=== PATIENT | female | born 1975 | race Two or more races ===

== ENCOUNTER 2020-04-08 05:15 | Day surgery (SDC) | payer OTHER ==
[~2020-04-08 05:15] MED LIST: ATACAND16 MG PO; DICY20TA PO; DIOVAN160 M1
[2020-04-08] MEDS ORDERED: NEURONTIN300 MG PO (09:08)
[2020-04-08] MEDS ORDERED: TYLENOL ARTHRI650 MG PO (09:08)
[2020-04-08] MEDS ORDERED: ULTRAM50 MG PO (09:08)
== END 2020-04-08 12:40 | disposition home or self-care (01) ==
LOC: CIR.AMB 05:15
PROVIDERS: ATTEND Surgery
DX: K80.10 Calculus of gallbladder with chronic cholecystitis without obstruction (principal); K42.9 Umbilical hernia without obstruction or gangrene; Z20.828 Contact with and (suspected) exposure to other viral communicable diseases